=== PATIENT | male | born 1975 | race African-American/Black ===

== ENCOUNTER 2021-12-28 02:48 | Emergency (ER) | payer MEDICAID ==
[~2021-12-28] VITALS: Ht 170.2 cm; Wt 77.0 kg
[2021-12-28] MEDS ORDERED: LORAZEPAM 1MG TABLET PO ONE (04:30)
[2021-12-28 04:44] LABS: HEMATOCRIT. 51.1 % (42.0-52.0); HEMOGLOBIN. 16.9 g/dL (14.0-18.0); MEAN CORPUSCULAR VOLUME 93.9 fL (80.0-94.0); MEAN PLATELET VOLUME 8.3 fl (7.4-10.4); PLATELET 302 x1000/uL (130-400); RED BLOOD CELL COUNT 5.45 mill/uL (4.7-6.1)
[2021-12-28 05:00] LABS: CHLORIDE 98 mEq/L (98-107)
[2021-12-28] MEDS ORDERED: HALOPERIDOL LACTATE 5MG/ML VIAL IM ONE ×2 (05:00)
[2021-12-28] MEDS ORDERED: DIAZEPAM 5 MG/ML 2ML CPJ IM NR (05:00)
[2021-12-28] MEDS: DIPHENHYDRAMINE 50MG/ML VIAL IM NR ×2 (05:07→05:36)
[2021-12-28 05:09] LABS: ETHANOL BLOOD < 10 mg/dL
[2021-12-28 05:51] LABS: CLARITY URINE TURBID (CLEAR); COLOR URINE DARK YELLOW (YELLOW); KETONES URINE 2+ (NEGATIVE); LEUKOCYTE ESTERASE URINE NEGATIVE (NEGATIVE); NITRITE URINE NEGATIVE (NEGATIVE); OCCULT BLOOD URINE 2+ (NEGATIVE); PROTEIN URINE 2+ (NEGATIVE); SPECIFIC GRAVITY URINE 1.028 (1.005-1.030)
[2021-12-28 06:07] LABS: PLATELET ESTIMATE NORMAL
[2021-12-28 06:07] LABS: *AMPHETAMINES SCREEN URINE PRESUMTIVE POSITIVE (NEGATIVE); *BARBITURATES SCREEN URINE NEGATIVE (NEGATIVE); *BENZODIAZEPINES SCREEN URINE NEGATIVE (NEGATIVE); *COCAINE SCREEN URINE NEGATIVE (NEGATIVE); CANNABINOID URINE SCREEN NEGATIVE (NEGATIVE); METHADONE URINE SCREEN NEGATIVE (NEGATIVE); OPIATES URINE SCREEN NEGATIVE (NEGATIVE); PHENCYCLIDINE URINE SCREEN NEGATIVE (NEGATIVE)
[2021-12-28 11:15] VITALS: BP 114/75
[2021-12-28] MEDS ORDERED: POTASSIUM CHLORIDE 20MEQ TABLET SR PO ONE (11:30)
== END 2021-12-28 11:36 | disposition home or self-care (01) ==
LOC: ER 02:48
DX: F29 Unspecified psychosis not due to a substance or known physiological condition (principal)
CPT/HCPCS: 36415; 80053; 80305; 80307; 80320; 80329; 81003; 85025; 96372; 99291; J1200; J1630; G0480